=== PATIENT | male | born 1990 | race Hispanic/Latino ===

== ENCOUNTER 2016-12-04 20:48 | Emergency (ER) | payer OTHER ==
[~2016-12-04] VITALS: Ht 167.6 cm; Wt 72.6 kg
[2016-12-04] MEDS ORDERED: TYLE325T5 PO (20:59)
[2016-12-04 21:56] VITALS: BP 130/72
[2016-12-04] MEDS ORDERED: NAPR500T PO (21:59)
[2016-12-04] MEDS ORDERED: PENI250T57 PO (21:59)
== END 2016-12-04 22:03 | disposition home or self-care (01) ==
LOC: M ED 21:28
DX: K08.89 Other specified disorders of teeth and supporting structures (principal)

== ENCOUNTER → 2016-12-17 | Outpatient (CLI) | payer OTHER ==
[~2016-12-17] MED LIST: NAPR500T PO; PENI250T57 PO; TYLE325T5 PO
== END ==
LOC: M OUTALCOH 13:26
PROVIDERS: ATTEND Psychiatry & Neurology Psychiatry
DX: F13.20 Sedative, hypnotic or anxiolytic dependence, uncomplicated (principal); F10.20 Alcohol dependence, uncomplicated

== ENCOUNTER 2017-01-10 14:00 | Outpatient (RCR) | payer OTHER | END 2017-01-13 | LOC: M OUTALCOH 14:00 | PROVIDERS: ATTEND Psychiatry & Neurology Psychiatry | DX: F13.20 Sedative, hypnotic or anxiolytic dependence, uncomplicated (principal); F10.20 Alcohol dependence, uncomplicated; F11.20 Opioid dependence, uncomplicated ==

== ENCOUNTER 2017-02-06 08:45 | Outpatient (RCR) | payer OTHER | END 2017-02-13 | LOC: M OUTALCOH 08:45 | PROVIDERS: ATTEND Psychiatry & Neurology Psychiatry | DX: F13.20 Sedative, hypnotic or anxiolytic dependence, uncomplicated (principal); F10.20 Alcohol dependence, uncomplicated; F11.20 Opioid dependence, uncomplicated ==

== ENCOUNTER 2017-02-22 10:19 | Outpatient (RCR) | payer MEDICAID | END 2017-03-15 | LOC: M OUTALCOH 10:19 | PROVIDERS: ATTEND Psychiatry & Neurology Psychiatry | DX: F13.20 Sedative, hypnotic or anxiolytic dependence, uncomplicated (principal); F10.20 Alcohol dependence, uncomplicated; F11.20 Opioid dependence, uncomplicated ==

== ENCOUNTER → 2017-12-11 | Outpatient (CLI) | payer MEDICAID, SELFPAY | LOC: M OUTALCOH 14:14 | DX: F12.20 Cannabis dependence, uncomplicated (principal); F10.20 Alcohol dependence, uncomplicated; F11.20 Opioid dependence, uncomplicated; F13.20 Sedative, hypnotic or anxiolytic dependence, uncomplicated ==

== ENCOUNTER 2017-12-19 09:48 | Outpatient (RCR) | payer MEDICAID, SELFPAY | END 2018-01-13 | LOC: M OUTALCOH 12-20 15:00 | DX: F13.20 Sedative, hypnotic or anxiolytic dependence, uncomplicated (principal); F10.20 Alcohol dependence, uncomplicated; F11.20 Opioid dependence, uncomplicated; F12.20 Cannabis dependence, uncomplicated ==

== ENCOUNTER 2017-12-29 09:45 | Emergency (ER) | payer MEDICAID, SELFPAY, OTHER | END 2017-12-29 10:13 | disposition home or self-care (01) | LOC: M ED 09:45 | DX: K08.89 Other specified disorders of teeth and supporting structures (principal) | CPT/HCPCS: 99282 ==